=== PATIENT | male | born 1960 | race Caucasian/White ===

== ENCOUNTER 2022-01-01 16:33 | Inpatient (IN) | payer OTHER ==
[~2022-01-01] VITALS: Ht 165.1 cm; Wt 111.6 kg
[2022-01-01 16:47] VITALS: BP 170/112
[2022-01-01 17:19] LABS: BASOPHILS # (AUTO) 0.1 K/uL (0.00-0.22); BASOPHILS % (AUTO) 1.1 % (0.0-2.0); EOSINOPHILS # (AUTO) 0.2 K/uL (0-0.4); EOSINOPHILS % (AUTO) 1.8 % (0.0-4.0); HEMATOCRIT 38.8 % (36-52); HEMOGLOBIN 13.3 g/dL (12.0-18.0); LYMPHOCYTES # (AUTO) 2.8 K/uL (2.0-11.5); LYMPHOCYTES % (AUTO) 29.7 % (20.5-51.1); MEAN CORPUSCULAR HEMOGLOBIN 30 pg (27-31); MEAN CORPUSCULAR HGB CONC 34 g/dL (33-37); MONOCYTES # (AUTO) 0.5 K/uL (0.8-1.0); NEUTROPHILS # (AUTO) 5.8 K/uL (1.8-7.7); NEUTROPHILS % (AUTO) 62.4 % (42.2-75.2); PLATELET COUNT (AUTO) 286 K/uL (140-450); RED CELL DISTRIBUTION WIDTH 13.1 % (11.6-13.7); WHITE BLOOD COUNT (AUTO) 9.3 K/uL (4.8-10.8)
--- NOTE | 2022-01-01 17:22 | NUR ---
PT AMBULATED TO BED 3
--- NOTE | 2022-01-01 17:29 | NUR ---
MYLES GARCIA WALKED TO LAB
[2022-01-01 17:42] LABS: ALBUMIN 3.5 g/dL (3.4-5.0); ANION GAP 15.1 (8-16); CARBON DIOXIDE 25.7 mmol/L (21-32); CREATININE 1.2 mg/dL (0.6-1.3); POTASSIUM 3.8 mmol/L (3.5-5.1); TOTAL BILIRUBIN 0.2 mg/dL (0.0-1.0)
[2022-01-01] MEDS ORDERED: NACL 0.9% 1,000 ML IV ONE (17:55)
[2022-01-01] MEDS ORDERED: cefTRIAXone 1,000 MG VIAL ONE (17:59)
--- NOTE | 2022-01-01 19:27 | NUR ---
Pt report given to ARINA MULLIGAN. Transfer of care at this time.
[2022-01-01] MEDS ORDERED: ZOLPIDEM 5 MG TAB PO PRN (20:10)
[2022-01-01] MEDS ORDERED: ACETAMINOPHEN 325 MG TAB PO PRN (20:10)
[2022-01-01] MEDS ORDERED: HYDROcodone/APAP 5/325 MG 1 TAB TAB PO PRN (20:10)
[2022-01-01] MEDS ORDERED: ONDANSETRON 4 MG/2 ML VIAL IVP PRN (20:10)
[2022-01-01] MEDS ORDERED: LORazepam 1 MG TAB PO PRN (20:10)
[2022-01-01 21:00] VITALS: BP 142/80
--- NOTE | 2022-01-01 21:00 | NUR ---
RECEIVED PATIENT FROM ER NURSE,PATIENT IS ALERT AND ORIENTED X4,ABLE TO AMBULATE. IV SITE ON RIGHT ANTE CUBITAL 20 G. VITAL SIGNS STABLE,NO DISTRESS NOTED.
--- NOTE | 2022-01-01 21:07 | NUR ---
PT REQ FOOD. NPO AFTER MIDNIGHT. SAGAR PROVIDED AND GLUCOSE CHECK
--- NOTE | 2022-01-01 21:30 | NUR ---
Patient will be admitted to care of . Admited to med/surg . Will go to room 123a. Belongings list completed. Report to castillo licea.
[2022-01-01] MEDS ORDERED: CLON0.1T46 PO (21:35)
[2022-01-01] MEDS ORDERED: GLIM1TAB23 PO (21:35)
[2022-01-01] MEDS ORDERED: METF-350 PO (21:35)
[2022-01-01] MEDS ORDERED: BACL10TA4 PO (21:35)
[2022-01-01] MEDS ORDERED: HYDR-4004 PO (21:35)
[2022-01-01] MEDS ORDERED: LYR75 PO (21:35)
[2022-01-01] MEDS ORDERED: LISI40TA12 PO (21:35)
--- NOTE | 2022-01-02 01:00 | NUR ---
PATIENT ASLEEP,RESPIRATION EVEN AND UNLABORED,NO DISTRESS NOTED
--- NOTE | 2022-01-02 03:00 | NUR ---
SLEEPING COMFORTABLY IN BED,NO DISTRESS NOTED
[2022-01-02 04:00] VITALS: BP 138/76
[2022-01-02 05:50] LABS: BASOPHILS # (AUTO) 0.1 K/uL (0.00-0.22); BASOPHILS % (AUTO) 0.9 % (0.0-2.0); EOSINOPHILS # (AUTO) 0.2 K/uL (0-0.4); EOSINOPHILS % (AUTO) 2.8 % (0.0-4.0); HEMATOCRIT 36.3 % (36-52); HEMOGLOBIN 12.7 g/dL (12.0-18.0); LYMPHOCYTES # (AUTO) 2.5 K/uL (2.0-11.5); LYMPHOCYTES % (AUTO) 35.2 % (20.5-51.1); MEAN CORPUSCULAR HEMOGLOBIN 31 pg (27-31); MEAN CORPUSCULAR HGB CONC 35 g/dL (33-37); MEAN CORPUSCULAR VOLUME 87.1 fL (80-94); MONOCYTES # (AUTO) 0.4 K/uL (0.8-1.0); MONOCYTES % (AUTO) 5.9 % (1.7-9.3); NEUTROPHILS % (AUTO) 55.2 % (42.2-75.2); PLATELET COUNT (AUTO) 263 K/uL (140-450); RED BLOOD CELL COUNT(AUTO) 4.17 MIL/uL (4.20-6.10); WHITE BLOOD COUNT (AUTO) 7.2 K/uL (4.8-10.8)
[2022-01-02] MEDS ORDERED: DEXT 5% / NACL 0.45% 1,000 ML IV SCH (06:00)
--- NOTE | 2022-01-02 06:00 | NUR ---
PATIENT IS AWAKE,ON NPO ,RESPIRATIONS EVEN AND UNLABORED ,,NO DISTRESS NOTED
[2022-01-02 06:01] LABS: ALBUMIN 3.2 g/dL (3.4-5.0); ANION GAP 11.4 (8-16); CARBON DIOXIDE 28.4 mmol/L (21-32); CREATININE 0.9 mg/dL (0.6-1.3); POTASSIUM 3.8 mmol/L (3.5-5.1); TOTAL BILIRUBIN 0.4 mg/dL (0.0-1.0)
[2022-01-02 08:00] VITALS: BP 175/95
--- NOTE | 2022-01-02 08:06 | NUR ---
RECEIVED REPORT, PT ME CONVERSE WITH NURSE ABOUT HIS CARE FOR TODAY.[id number]
--- NOTE | 2022-01-02 08:14 | NUR ---
PATIENT HAS BEEN SCREENED AND CATEGORIZED MODERATE NUTRITION RISK. PATIENT WILL BE SEEN WITHIN 3-[address] DA[address] OF ADMISSION. LA[address]
[2022-01-02] MEDS ORDERED: DOCUSATE SODIUM 100 MG GELCAP PO SCH (09:00)
[2022-01-02 12:30] VITALS: BP 175/95
[2022-01-02] MEDS ORDERED: INSULIN LANTUS 100 UNITS/ML 10 ML VIAL SUBQ SCH (12:50)
[2022-01-02] MEDS ORDERED: DEXTROSE 50% 50 ML SYR IVP PRN (12:50)
[2022-01-02] MEDS ORDERED: INSULIN LISPRO SLIDING SCALE 100 UNITS/ML VIAL SUBQ PRN (12:50)
[2022-01-02] MEDS ORDERED: TTS3 PO (13:03)
[2022-01-02] MEDS ORDERED: BACLOFEN 10 MG TAB PO PRN (13:10)
[2022-01-02] MEDS ORDERED: hydroCHLOROthiazide 25 MG TAB PO SCH (13:13)
[2022-01-02] MEDS ORDERED: CLONIDINE HYDROCHLORIDE 0.1 MG TAB PO SCH (13:13)
[2022-01-02] MEDS ORDERED: lisinopriL 20 MG TAB PO SCH (13:14)
[2022-01-02] MEDS ORDERED: PREGABALIN 25 MG CAP PO SCH (13:15)
[2022-01-02] MEDS ORDERED: AMOX1TER12 PO (13:53)
--- NOTE | 2022-01-02 14:26 | NUR ---
DC PLANNING: THE PATIENT PRESENTED FROM HOME WITH C/O ULCER ON HIS LEFT 5TH TOE X 1 MONTH. H/O DM AND HTN, XRAY OF FOOT/TOES NEGATIVE FOR OSTEOMYELITIS. GLUCOSE 300, CALCIUM 7.7, ADMITTED FOR IV ABX. PATIENT SEEN BY PODIATRY WHO ORDERED A POST OP SHOE AND WOUND CARE DAILY TO THE LEFT 5TH TOE. CM SPOKE WITH THE PATIENT AT BEDSIDE AND CONFIRMED HIS ADDRESS AND PHONE NUMBER. HE LIVES IN A SINGLE STORY HOUSE WITH HIS AND USES A FWW WITH A SEAT TO AMBULATE. HE HAS NO H/O HOME HEALTH, AND HAS A GLUCOMETER THAT HE DOESN'T USE. HE IS ON PO MEDS FOR HIS DM AND ADMITS THAT HE AND HIS WHO IS ALSO DIABETIC ARE NON-COMPLIANT. HE DOES NOT SEE HIS PCP DR SALAS BUT IS PLANNING ON FOLLOWING UP WITH THE MARINE ERECTOR WHO SAW HIM HERE. 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 PATIENT WITH DC ORDERS FOR TODAY, FORTUNATO WILL FOLLOW. Addendum: 01/02/22 at 1435 by Linda Garcia CM Amended: Links added.
[2022-01-02 15:11] VITALS: BP 181/92
--- NOTE | 2022-01-02 16:03 | NUR ---
PATIENT DISCHARGED HOME, DISCHARGE INSTRUCTION GIVEN, IV LINE AND ID BAND REMOVED, PT TAKEN FROM UNIT BY W\C WITH NURSE TO HIS CAR.[id number]
--- NOTE | 2022-01-02 16:26 | NUR ---
DC PLANNING PATIENT IS A 61 YR OLD MALE WHO PRESENTED TO [facility]/ED ON 01/01/22 FOR CHRONIC INFECTION OF LEFT FIFTH TOE. SW MET WITH PATIENT AT BED SIDE FOR THE PURPOSE OF DISCUSSING AND GATHERING COLLATERAL INFORMATION. PATIENT REPORTS LIVING AT THE ADDRESS LISTED WITH HIS AND [place]. PATIENT REPORTS EMERGENCY CONTACT AND MEDICAL DECISION MAKER JONI PINON () [phone]. SW INQUIRED ON A.D; PATIENT DECLINED CURRENTLY HAVING A.D IN PLACE. SW PROVIDED PATIENT WITH INFORMATION, PATIENT WAS RECEPTIVE AND ACCEPTED A.D PROVIDED BY [facility]. PATIENT REPORTS MEETING WITH HIS PCP "PRETTY REGULARLY" VIA TELEHEALTH AND REPORTS LAST VISIT 01/01/22/. PATIENT DENIES BARRIERS ACCESSING MEDICATIONS AND REPORTS ACQUIRING MEDICATIONS FROM [facility] IN [place]. SW SPOKE WITH PATIENT ON THE IMPORTANCE OF FOLLOW UP. PATIENT WAS RECEPTIVE HOWEVER, PATIENT DECLINED FOR SW TO SCHEDULE FOLLOW UP. PATIENT REPORTED THAT HE WOULD FOLLOW UP ON HIS OWN. PATIENT REPORTS BEING INDEPENDENT WITH ASSISTANCE AND UTILIZES A WALKER. PATIENT REPORTS DME BLOOD PRESSURE MACHINE, BATH CHAIR AND GLUCOMETER. PATIENT REPORTS ADEQUATE FRIEND AND FAMILY SUPPORT. PATIENTS DC PLAN IS TO RETURN HOME, AND REPORTS THAT WILL AID IN HIS CARE IF NEEDED. PATIENT REPORTS THAT FAMILY FRIEND WILL BE PICKING UP FROM HOSPITAL ONCE CLEARED FOR DC. SW INQUIRED ON ANY ADDITIONAL RESOURCES NEEDED; PATIENT DECLINED AT THIS TIME. Addendum: 01/03/22 at 1505 by Marcela Gates SS SW OUTREACHED TO PATIENT TO SCHEDULE FOLLOW UP APPT WITH PCP HOWEVER, PATIENT DECLINED AND REPORTED THAT HE WOULD MAKE FOLLOW UP APPT ON HIS OWN.
[2022-01-02] MEDS ORDERED: BLOOD GLUCOSE MONITORING 1 DEV DEV FS SCH (16:30)
[2022-01-02] MEDS ORDERED: metFORMIN 850 MG TAB PO SCH (21:00)
[2022-01-03] MEDS ORDERED: metFORMIN 850 MG TAB PO SCH (09:00)
== END 2022-01-02 16:25 | disposition home health service (06) | DRG 380 ==
LOC: MED 16:33 → MTU 20:19
PROVIDERS: ADMIT Student in an Organized Health Care Education/Training Program; ATTEND Student in an Organized Health Care Education/Training Program
PROC: 2W2TX4Z Dressing of Left Foot using Bandage (ICD-10-PCS; principal; 2022-01-01)
DX: E11.621 Type 2 diabetes mellitus with foot ulcer (principal); L97.529 Non-pressure chronic ulcer of other part of left foot with unspecified severity; E11.42 Type 2 diabetes mellitus with diabetic polyneuropathy; E11.51 Type 2 diabetes mellitus with diabetic peripheral angiopathy without gangrene; L03.032 Cellulitis of left toe; Z20.822 Contact with and (suspected) exposure to COVID-19; E11.65 Type 2 diabetes mellitus with hyperglycemia; I10 Essential (primary) hypertension; E78.5 Hyperlipidemia, unspecified; Z87.891 Personal history of nicotine dependence
CPT/HCPCS: 36415; 71045; 73660; 80053; 82948; 83605; 83880; 84484; 85025; 87040; 87081; 93005; 93925; 96361; 96365; 99285; J0696; J1815; J7030; J7060; Q0092